=== PATIENT | male | born 1995 | race Caucasian/White ===

== ENCOUNTER 2021-04-08 14:39 | Emergency (ER) | payer MEDICAID, OTHER ==
[~2021-04-08] VITALS: Ht 175.3 cm; Wt 65.8 kg
[2021-04-08] MEDS ORDERED: ALBUTEROL SULFATE 2.5 MG/3 ML NEBU NEB ONE (15:00)
[2021-04-08] MEDS ORDERED: predniSONE 20 MG TABLET PO ONE (15:00)
--- NOTE | 2021-04-08 15:00 | NUR ---
at bedside for assessment
[2021-04-08] MEDS ORDERED: ALBUTEROL SULFATE 2.5 MG/3 ML NEBU ONE (15:23)
[2021-04-08] MEDS ORDERED: PRED20TA PO (15:32)
[2021-04-08] MEDS ORDERED: ALBU8HFA4 INH (15:32)
--- NOTE | 2021-04-08 15:50 | NUR ---
Pt back from x-ray, NAD noted.
[2021-04-08] MEDS ORDERED: predniSONE 50 MG TABLET ONE (15:57)
[2021-04-08] MEDS ORDERED: predniSONE 10 MG TABLET ONE (15:57)
[2021-04-08 16:11] LABS: BASOPHILS % (AUTO) 0.6 % (0.0-2.0); EOSINOPHILS # (AUTO) 0.1 K/uL (0.0-0.7); EOSINOPHILS % (AUTO) 1.6 % (0.0-7.0); HEMATOCRIT 39.9 % (36.7-47.1); HEMOGLOBIN 13.6 g/dL (12.5-16.3); LYMPHOCYTES # (AUTO) 1.5 K/uL (20.0-40.0); LYMPHOCYTES % (AUTO) 32.3 % (20.5-51.5); MEAN CORPUSCULAR HEMOGLOBIN 29.9 uug (23.8-33.4); MEAN CORPUSCULAR HGB CONC 34 g/dL (32.5-36.3); MEAN CORPUSCULAR VOLUME 87.8 fL (73.0-96.2); MONOCYTES # (AUTO) 0.3 K/uL (2.0-10.0); MONOCYTES % (AUTO) 5.5 % (0.0-11.0); NEUTROPHILS # (AUTO) 2.8 K/uL (1.8-8.9); PLATELET COUNT (AUTO) 197 K/uL (152-348); RED BLOOD CELL COUNT(AUTO) 4.54 MIL/uL (4.06-5.63); WHITE BLOOD COUNT (AUTO) 4.7 K/uL (3.6-10.2)
[2021-04-08 16:16] LABS: CREATININE 1.1 mg/dL (0.6-1.3); POTASSIUM 3.4 mmol/L (3.5-5.1)
--- NOTE | 2021-04-08 16:20 | NUR ---
Patient noted resting in bed, no signs of acute distress noted
[2021-04-08] MEDS ORDERED: LIDOCAINE VISCUS 2% 15 ML UDC MM ONE (16:30)
[2021-04-08] MEDS ORDERED: MAG HYDROX/AL HYDROX/SIMETH 30 ML LIQUID UDC PO ONE (16:30)
[2021-04-08] MEDS ORDERED: POTASSIUM BICARBONATE/CIT AC 25 MEQ TABLET.EFF PO ONE (16:30)
[2021-04-08] MEDS ORDERED: POTASSIUM BICARBONATE/CIT AC 25 MEQ TABLET.EFF ONE (16:34)
[2021-04-08] MEDS ORDERED: MAGNESIUM HYDROXIDE 30 ML LIQUID UDC ONE (16:35)
[2021-04-08] MEDS ORDERED: LIDOCAINE VISCUS 2% 15 ML UDC ONE (16:35)
[2021-04-08] MEDS ORDERED: PANT40TA2 PO (16:39)
--- NOTE | 2021-04-08 17:03 | NUR ---
Patient discharged to home in stable condition. Able to ambulate with steady gait, no signs of acute distress noted. Written and verbal after care instructions given. Patient verbalizes understanding of instructions. Stressed follow up or return to ER for worsening s/s.
[2021-04-08 17:05] VITALS: BP 128/69
== END 2021-04-08 17:05 | disposition home or self-care (01) ==
LOC: ER 14:39
DX: R07.9 Chest pain, unspecified (principal); J20.9 Acute bronchitis, unspecified; J30.2 Other seasonal allergic rhinitis; Z86.16 Personal history of COVID-19; F17.291 Nicotine dependence, other tobacco product, in remission; E87.6 Hypokalemia
CPT/HCPCS: 36415; 71046; 80048; 84484; 85025; 94640; 99285; J7512 ×2; 70030-TC; A4663